=== PATIENT | male | born 2000 | race Caucasian/White ===

== ENCOUNTER 2023-02-07 18:31 | Inpatient (IN) | payer OTHER, SELFPAY ==
[2023-02-07 18:32] VITALS: BP 157/87; BP 172/100; PULSE 130; PULSE 78; RESP 16; RESP 18; TEMP 36.6; O2SAT 99
[2023-02-07 19:30] VITALS: BMI 37.2
--- NOTE | 2023-02-07 19:37 | HP.PCM.HOS_ITS ---
HPI - General General Date of Admission: 02/07/23 Date of Service: 02/07/23 Chief Complaint: EtOH abuse/withdrawal HPI Narrative The patient is a 22 y/o M w/ PMHx: Asthma, Obesity, EtOH abuse (1/2 bottle vodka daily), Vaping tobacco use, Anxiety and Depression never treated or evaluated he notes, Obesity who presents to the [facility] ED on 02/07/23 with history of acute alcohol withdrawal with last alcohol intake at approximately noon on day of presentation with onset of tremulousness, tactile disturbances, mild agitation as well as nausea prompting his father to bring him in for evaluation and detoxification. He has previously been through detox in the past. He is interested in obtaining a sober status. He reports that he has had ongoing significant alcohol abuse for the last 7 years. Work-up in the ED included T97.8, heart rate 130, BP 172/100, respiratory rate 18, 99% on room air, pending upon evaluation at the alcohol level, urine drug screen, CBC, CMP. [facility] Medical History Alcohol abuse Anxiety and depression Asthma Obesity Tobacco use Vaping nicotine dependence, tobacco product Home Medications NK 02/07/23 [History Last Taken Unknown] Allergy/AdvReac Type Severity Reaction Status Date / Time No Known Allergies Allergy Verified 02/07/23 18:34 Family History (Updated 02/07/23 @ 21:[address] Flakita Sullivan MD) Father Diabetes Mother No problems noted. Surgical History (Updated 02/07/23 @ 21:[address] Flakita Sullivan MD) No history of previous surgery Social History (Updated 02/07/23 @ 21:[address] Flakita Sullivan MD) household members: none Smoking Status: Current every day smoker tobacco type: e-cigarettes Electronic Cigarette Use: with nicotine alcohol intake: current alcohol intake frequency: 3 or more drinks per day details: ~ 1/2 gallon vodka daily, varying proof. substance use type: does not use ROS ROS Narrative Admission Review of Systems: CONSTITUTIONAL: No weight loss, fever, chills, + weakness or fatigue. HEENT: Eyes: No visual loss, blurred vision, double vision or yellow sclerae. Ears, Nose, Throat: No hearing loss, sneezing, congestion, runny nose or sore throat. SKIN: No rash or itching, lesions, wounds. CARDIOVASCULAR: No chest pain, chest pressure or chest discomfort, palpitations, edema, orthopnea, syncopal events. RESPIRATORY: No shortness of breath, cough or sputum, wheezing, hemoptysis. GASTROINTESTINAL: + anorexia, nausea. No vomiting or diarrhea, abdominal pain, melena, BRBPR. GENITOURINARY: No dysuria, frequency, urgency or retention. NEUROLOGICAL: + Mild tremors, mild tactile disturbances. No headache, dizziness, syncope, paralysis, ataxia, numbness or tingling in the extremities, focal weakness, change in bowel or bladder control, seizure. MUSCULOSKELETAL: No muscle, back pain, joint pain or stiffness. HEMATOLOGIC: No anemia, bleeding or bruising. LYMPHATICS: No enlarged nodes. No history of splenectomy. PSYCHIATRIC: + Admits to depression or anxiety, not formally diagnosed. ENDOCRINOLOGIC: No reports of sweating, cold or heat intolerance. No polyuria or polydipsia. ALLERGIES: + history of asthma. Vital Signs Vital Signs Vital Signs: 02/07/23 18:32 Temperature 97.8 F Temperature Source Temporal Pulse Rate 130 H Respiratory Rate 18 Blood Pressure 172/100 H Blood Pressure Mean 124 Pulse Ox 99 Oxygen Delivery Method Room Air Weight Weight: 290 lb 2.053 oz Body Mass Index (BMI) 37.2 Physical Exam Narrative Physical Examination: General: Awake, alert, oriented x 3 and cooperative, seated upright in the ED bed, fatigued, mildly tremulous and restless, very anxious. Skin: Normal color, normal turgor, no icterus, no cyanosis. HEENT: AT/NC, EOMI, PERRLA, moderately dry MM, no carotid bruits or JVD noted. Lungs: CTA bilaterally, moderate effort, mild decrease BL bases, no rales, ronchi or wheezing. Heart: Regular rate and rhythm; no gallop, rub audible. Abdomen: Soft, obese, mild generalized discomfort but no rebound or guarding and more so in the right upper quadrant/epigastric region, ND, hyperactive BS, + appreciated mild HM. Extremities: No cyanosis, clubbing, or edema. Neurological: Patient awake, alert, oriented as noted, cognitive function intact; pupils equally reactive to light and accommodation, cranial nerves II- XII grossly normal, moving all 4 extremities, no focal deficits, strength moderately globally decreased secondary to acute presentation, mildly tremulous, mild tactile disturbances noted Psychiatric: Affect appears fatigued, very anxious, no acute evidence of depressive feelings but does admit to likely underlying anxiety and depression. Assessment & Plan Assessment/Plan (1) Alcohol withdrawal: PLAN: Plan The patient is a 22 y/o M w/ PMHx: Asthma, Obesity, EtOH abuse (1/2 bottle vodka daily), Vaping tobacco use, Anxiety and Depression never treated or evaluated he notes, Obesity who presents to the [facility] ED on 02/07/23 with history of acute alcohol withdrawal. #1. Acute EtOH Withdrawal: Will admit to medical surgical floor, routine labs obtained in the ED upon presentation and pending upon requested evaluation of patient. Given interest in sobriety, will initiate and continue on protocol with taper course of Phenobarbital, as needed gabapentin, Catapres, Bentyl, Vistaril, IV fluids, IV antiemetics, Tylenol as needed for pain. Will consult Case management for assistance for transition to next level of rehabilitation care. Mag, phos pending. Maintain on CIWA protocol concurrently. #2. Elevated BP without HTN history: Notable BP elevation on presentation, likely related with acute presentation with alcohol withdrawal but will continue to monitor and if appropriate add oral regimen, in the interim PRN hydralazine. #3. Tobacco Abuse: Patient with chronic vaping tobacco use, encouraged cessation, inpatient consultation per RT, NR if desired. #4. Anxiety and depression: Patient does admit to this and suspect likely underlying especially given prolonged 7-year alcohol abuse, case management/substance counselor consulted and would benefit from further evaluation. #5. Obesity: Weight loss and lifestyle changes encouraged. #6. Asthma, chronic: Not on any chronic regimen, will have as needed albuterol, encourage vaping and tobacco product cessation. #7. DVT prophylaxis: Low risk. Charges/Coding Visit Charges Inpatient E&M: 33780 Init Hosp L2
--- NOTE | 2023-02-07 20:02 | EDS_ITS ---
HPI <TAVIA Morris - Last Filed: 02/07/23 20:06> History of Present Illness Chief Complaint: Substance Abuse Narrative Narrative: Patient is presenting today requesting detox from alcohol. He reports that he has been drinking for the past 7 years and drinks about a half bottle of vodka daily, the bottle is 750 mL. He has never medically detoxed in a facility before. He has never had a withdrawal seizure but does report that he gets withdrawal symptoms when he does not drink including feeling shaky and sweaty. He denies a PMH of any chronic health conditions. His last drink was 2 PM this afternoon. He denies any other substance use. PFSH <TAVIA Morris - Last Filed: 02/07/23 20:06> PFSH Medical History Alcohol abuse Anxiety and depression Asthma Obesity Tobacco use Vaping nicotine dependence, tobacco product Home Medications NK 02/07/23 [History Last Taken Unknown] Allergy/AdvReac Type Severity Reaction Status Date / Time No Known Allergies Allergy Verified 02/07/23 18:34 Family History (Updated 02/07/23 @ 21:[address] Flakita Sullivan MD) Father Diabetes Mother No problems noted. Surgical History (Updated 02/07/23 @ 21:[address] Flakita Sullivan MD) No history of previous surgery Social History (Updated 02/07/23 @ 21:[address] Flakita Sullivan MD) household members: none Smoking Status: Current every day smoker tobacco type: e-cigarettes Electronic Cigarette Use: with nicotine alcohol intake: current alcohol intake frequency: 3 or more drinks per day details: ~ 1/2 gallon vodka daily, varying proof. substance use type: does not use ROS <TAVIA Morris - Last Filed: 02/07/23 20:06> ROS ED Constitutional Constitutional ED: Denies chills or fever(s) Cardiovascular Cardiovascular: Denies chest pain or palpitations Respiratory/Chest Respiratory/Chest: Denies cough or dyspnea Gastrointestinal Gastrointestinal: Denies abdominal pain, nausea or vomiting Genitourinary Genitourinary ED: Denies dysuria, hematuria or urinary urgency Musculoskeletal Musculoskeletal: Denies arthralgias or myalgias Integumentary Denies rash Neurologic Neurologic: Denies weakness Psychiatric Psychiatric: Denies anxiety, depression, suicidal ideation or suicidal thoughts EXAM <TAVIA Morris - Last Filed: 02/07/23 20:06> Physical Exam Const Vital Signs: 02/07/23 18:32 02/07/23 18:32 Temperature 97.8 F Temperature Source Temporal Pulse Rate 130 H 78 Respiratory Rate 18 16 Blood Pressure 172/100 H 157/87 H Blood Pressure Mean 124 110 Pulse Ox 99 99 Oxygen Delivery Method Room Air Room Air Positive well nourished, well developed and no apparent distress General Appearance ED: well developed HEENT Reports normocephalic and head/scalp atraumatic Mouth ED: Yes moist mucous membranes normal Eyes PERRL and EOMs intact bilaterally Neck full ROM and supple Chest Wall inspection of chest normal Resp normal respiratory effort and clear to auscultation bilaterally Cardio regular rate and regular rhythm GI soft to palpation, non-tender, non-distended and no masses Back/Spine normal ROM and normal to inspection Extremity normal to inspection and full ROM Neuro oriented x3, CN's II-XII intact bilaterally, moves all extremities, no focal motor deficits and no sensory deficits noted Sensorium / Orientation: awake and alert Psych mental status grossly normal and thought process normal Skin no rashes or lesions noted and no wounds <Dr. Mayelin Romero, - Last Filed: 02/07/23 22:19> Physical Exam Const Vital Signs: 02/07/23 18:32 02/07/23 18:32 Temperature 97.8 F Temperature Source Temporal Pulse Rate 130 H 78 Respiratory Rate 18 16 Blood Pressure 172/100 H 157/87 H Blood Pressure Mean 124 110 Pulse Ox 99 99 Oxygen Delivery Method Room Air Room Air MDM <TAVIA Morris - Last Filed: 02/07/23 20:06> [facility] Narrative Medical decision making narrative: Patient requesting to detox from alcohol, he has drank heavily for the past 7 years and has never tried to detox in a facility before. Initially he was tachycardic but repeat vitals show 78 bpm. He does appear shaky. He will be admitted in stable condition for detox and is comfortable with plan. Detox labs have been obtained. <Dr. Mayelin Romero DO - Last Filed: 02/07/23 22:19> [facility] Narrative Medical decision making narrative: Patient requesting to detox from alcohol, he has drank heavily for the past 7 years and has never tried to detox in a facility before. Initially he was t achycardic but repeat vitals show 78 bpm. He does appear shaky. He will be admitted in stable condition for detox and is comfortable with plan. Detox labs have been obtained. I have personally performed a face to face assessment of the patient and have reviewed the FRITZ Note. I performed a substantive portion of the visit including all aspects of the following. My escamilla findings include: History is patient is a 22-year-old male with history of ongoing alcohol use, states he drinks half of 120 proof vodka daily. He is present with his father for request of alcohol detox. Has no other complaints at this time. He is mildly tremulous but also states this is his baseline. At this time I do not think he is actively withdrawing. Will be admitted for inpatient detox he is agreeable with entered into our ramp program. Other additions or changes: [None] Discharge Plan Dx/Rx/DC Orders Clinical Impression: Desire for detoxification, Alcohol use Disposition Disposition: [facility]
[2023-02-07 20:16] VITALS: BP 155/61; PULSE 87; RESP 16; TEMP 36.6; O2SAT 99
[2023-02-07 20:32] VITALS: BP 158/78; PULSE 76; RESP 14; O2SAT 99
[2023-02-07 21:13] VITALS: BP 146/81; PULSE 88; RESP 18; TEMP 36.8; O2SAT 99
[2023-02-07 21:30] LABS: Magnesium 2.8 mg/dL (1.6-2.6); Phosphorus 2.8 mg/dL (2.5-4.9)
--- NOTE | 2023-02-07 21:52 | CM.ED ---
Social Work SW introduced self and role to patient. Pt's father present in the room and supportive. Pt is requesting detox from alcohol. Pt reports being nervous and has questions regarding the process. Pt reports he has never detoxed before. SW provided emotional support and answered some questions. Treatment navigator notified of patient being admitted for detox. Anjelica Barahona CARE ANALYST, SUPERVISOR [employer]
[2023-02-07 21:55] LABS: Absolute Lymphocyte Count 1.97 X10^3/uL (0.83-4.51); Absolute Neutrophil Count 3.2 X10^3/uL (2.0-7.7); Basophil# 0.06 X10^3/uL; Eosinophil# 0.01 X10^3/uL; Eosinophils% 0.2 % (0-5); Hematocrit 43.3 % (40-54); Hemoglobin 14.6 g/dL (13.0-16.5); Lymphocyte # 1.97 X10^3/ul (0.83-4.51); Lymphocyte % 34.2 % (19-41); Mean Corp Hgb Conc 33.7 g/dL (32-36); Mean Corpuscular Hgb 30.5 pg (27.0-32.0); Mean Corpuscular Volume 90.6 fL (80-94); Mean Platelet Vol. 9.1 fl (6.2-12.0); Monocyte% 8.7 % (0-10); NRBC Flagged by Analyzer 0 % (0-5); Neutrophil # 3.21 X10^3/uL (2.7-7.7); Neutrophil % 55.7 % (47-70); Platelet Count 320 K/mm3 (150-450); RBC Distribution Width CV 12.5 % (11.6-14.6); RBC Distribution Width SD 41.1 fl (35.1-43.9); Red Blood Count 4.78 M/mm3 (4.6-6.2); White Blood Count 5.8 K/mm3 (4.4-11.0)
[2023-02-07 22:26] LABS: ALB/GLOB Ratio 1.1 RATIO (0.9-2.4); AST(SGOT) 56 U/L (15-37); Alanine Aminotransfer ALT/SGPT 62 U/L (16-61); Alkaline Phosphatase 73 U/L (45-117); Anion Gap 15 (5-15); BUN 8 mg/dL (7-18); BUN/Creat Ratio 11.1 RATIO (10-20); Calcium,Total 8.8 mg/dL (8.5-10.1); Chloride 101 mmol/L (98-107); Creatinine, Serum 0.72 mg/dL (0.70-1.30); EST Glomerular Filtration Rate 143 mL/min (>60); Est Glom Filt Rate - Afr Amer 173 mL/min (>60); Estimated Creatinine Clearance 185.52 ml/min; Globulin 3.7 g/dL (2.2-4.2); Glucose 83 mg/dL (74-106); Protein, Total 7.7 g/dL (6.4-8.2); Sodium Level 141 mmol/L (136-145)
[2023-02-07 22:34] VITALS: BMI 35.9
[2023-02-07 22:50] VITALS: BP 158/113; PULSE 102; RESP 18; TEMP 36.6; O2SAT 97
[2023-02-07] MEDS: Ondansetron 8 MG Tablet PO (23:04)
[2023-02-07] MEDS: Phenobarbital 32.4 MG Tablet 64.8 MG PO (23:04)
[2023-02-07] MEDS: traZODone 100 MG Tablet PO (23:05)
[2023-02-07] MEDS: hydrOXYzine PAM 25 MG Capsule 50 MG PO (23:05)
[2023-02-08] MEDS: Phenobarbital 32.4 MG Tablet 64.8 MG PO ×6 (01:22→21:28)
[2023-02-08 05:24] VITALS: BP 141/87; PULSE 107; RESP 18; TEMP 36.4; O2SAT 96
[2023-02-08 07:59] VITALS: O2SAT 95
--- NOTE | 2023-02-08 08:36 | PCM.PN.HOSP ---
Reason for Visit Reason for Visit: Diagnoses Alcohol use, unspecified with withdrawal, unspecified (02/07/23) Subjective Subjective Follow-up for acute alcohol withdrawal syndrome. Objective Data Objective Data Vital Signs: Vital Signs Temp Pulse Resp BP Pulse Ox O2 Del Method 97.6 F L 107 H 18 141/87 H 95 Room Air 02/08/23 05:24 02/08/23 05:24 02/08/23 05:24 02/08/23 05:24 02/08/23 07:59 02/08/23 07:59 Oxygen Delivery Method Room Air Weight: 287 lb 8 oz Body Mass Index (BMI) 35.9 Lab / Micro Data 02/07/23 21:05 02/07/23 21:05 Labs: Laboratory Results - last 24 hr 02/07/23 21:05: WBC 5.8, RBC 4.78, Hgb 14.6, Hct 43.3, MCV 90.6, MCH 30.5, MCHC 33.7, RDW Std Deviation 41.1, RDW Coeff of Parker 12.5, Plt Count 320, MPV 9.1, Immature Gran % (Auto) 0.200, Neut % (Auto) 55.7, Lymph % (Auto) 34.2, Gaines % (Auto) 8.7, Eos % (Auto) 0.2, Baso % (Auto) 1.0, Absolute Neuts (auto) 3.2, Absolute Lymphs (auto) 1.97, Nucleated RBC % 0, Sodium 141, Potassium 3.0 L, Chloride 101, Carbon Dioxide 25.0, Anion Gap 15, BUN 8, Creatinine 0.72, Estim Creat Clear Calc 185.52, Est GFR (MDRD) Af Amer 173, Est GFR (MDRD) Non-Af 143, BUN/Creatinine Ratio 11.1, Glucose 83, Calcium 8.8, Phosphorus 2.8, Magnesium 2.8 H, Total Bilirubin 0.30, AST 56 H, ALT 62 H, Alkaline Phosphatase 73, Total Protein 7.7, Albumin 4.0, Globulin 3.7, Albumin/Globulin Ratio 1.1, Ethyl Alcohol 374.0 H* Physical Exam Narrative Seen and examined. Patient drinks half bottle of vodka daily preferably about 400 mL. Patient denies history of chronic liver disease. Denies chronic stigmata of cirrhosis/alcoholic hepatitis including ascites, GI bleed or features of portal hypertension. Physical exam General: Alert, Oriented x3, Cooperative HEENT: Atraumatic, PERRLA, EOMI, Normocephalic Oral: Oral mucosa dry. No Gingival or Mucosal Lesions/ Ulcerations Neck: Supple, No JVD, Negative Carotid Bruits Lungs: Air entry diminished in bilateral lung bases. No crepitation/rhonchi Cardiovascular: Regular rate, Regular Rhythm, Normal S1, Normal S2, No murmurs Abdomen: Bowel Sounds Present, Soft, Non Tender, Non-Distended. No ascites. No hepatosplenomegaly. : No renal angle tenderness. No suprapubic tenderness. Extremities: No edema, Capillary Refill Less than 3 Seconds Skin: No rashes, No breakdown Musculoskeletal: No Tenderness to Palpation of Joints or Extremities Neurological: Cranial nerves II-XII grossly intact, DTR 2+/4. No acute focal neurological defic Psych/Mental Status: Flat affect mild restlessness. No aggressiveness/suicidal ideation. No hallucination. Assessment & Plan Assessment/Plan (1) Alcohol withdrawal: QUALIFIERS: Complication of substance-induced condition: with delirium Qualified Code(s): F10.931 - Alcohol use, unspecified with withdrawal delirium PLAN: Plan The patient is a 22 y/o M w/ PMHx: Asthma, Obesity, EtOH abuse (1/2 bottle vodka daily), Vaping tobacco use, Anxiety and Depression never treated or evaluated he notes, Obesity who presents to the [facility] ED on 02/07/23 with history of acute alcohol withdrawal. #1. Acute alcohol withdrawal syndrome with history of chronic alcohol use dependence: Patient is being admitted to MedSurg floor. On IV fluid was given. Patient on phenobarbital based order set along with other adjunctive medications as needed for alcohol withdrawal symptom control. CIWA monitor. auto body shop manager consulted. On CIWA protocol. Patient has hypokalemia: Potassium replaced ordered with Neutra-Phos. #2. Elevated BP without HTN history: Blood pressure was high during admission probably due to acute alcohol withdrawal. Patient is still tachycardic. Clonidine ordered. Discontinue hydralazine. #3. Tobacco Abuse: Patient with chronic vaping tobacco use, encouraged cessation, on nicotine patch. #4. Anxiety and depression: auto body shop manager consult. Not on antidepression.. #5. Obesity: Weight loss and lifestyle changes encouraged. #6. Asthma, chronic: Not on any chronic regimen, will have as needed albuterol, encourage vaping and tobacco product cessation. #7. DVT prophylaxis: Low risk. Laboratory Results 02/07/23 10:30: Urine Opiates Screen NEGATIVE, Urine Methadone Screen NEGATIVE, Ur Barbiturates Screen POSITIVE H, Ur Phencyclidine Scrn NEGATIVE, Ur Amphetamines Screen NEGATIVE, MDMA (Ecstasy) Screen POSITIVE H, U Benzodiazepines Scrn NEGATIVE, Urine Cocaine Screen NEGATIVE, U Cannabinoids Screen POSITIVE H, Ur Drug Screen Comment 02/07/23 21:05: WBC 5.8, RBC 4.78, Hgb 14.6, Hct 43.3, MCV 90.6, MCH 30.5, MCHC 33.7, RDW Std Deviation 41.1, RDW Coeff of Parker 12.5, Plt Count 320, MPV 9.1, Immature Gran % (Auto) 0.200, Neut % (Auto) 55.7, Lymph % (Auto) 34.2, Gaines % (Auto) 8.7, Eos % (Auto) 0.2, Baso % (Auto) 1.0, Absolute Neuts (auto) 3.2, Absolute Lymphs (auto) 1.97, Nucleated RBC % 0, Sodium 141, Potassium 3.0 L, Chloride 101, Carbon Dioxide 25.0, Anion Gap 15, BUN 8, Creatinine 0.72, Estim Creat Clear Calc 185.52, Est GFR (MDRD) Af Amer 173, Est GFR (MDRD) Non-Af 143, BUN/Creatinine Ratio 11.1, Glucose 83, Calcium 8.8, Phosphorus 2.8, Magnesium 2.8 H, Total Bilirubin 0.30, AST 56 H, ALT 62 H, Alkaline Phosphatase 73, Total Protein 7.7, Albumin 4.0, Globulin 3.7, Albumin/Globulin Ratio 1.1, Ethyl Alcohol 374.0 H* Charges/Coding Visit Charges Inpatient E&M: 77837 Subs Hosp L2
[2023-02-08] MEDS: Multivitamins,Ther W-Minerals Tablet 1 TABLET PO (08:51)
[2023-02-08] MEDS: Folic Acid 1 MG Tablet PO (08:52)
[2023-02-08] MEDS: Thiamine Hydrochloride 100 MG Tablet PO (08:52)
[2023-02-08 09:21] VITALS: BP 158/98; PULSE 109; PULSE 110; RESP 18; TEMP 36.6; O2SAT 98
[2023-02-08 11:22] LABS: Amphetamine Urine VISTA NEGATIVE (<1000 ng/mL); Barbiturate Urine VISTA POSITIVE (< 200 ng/mL); Benzodiazepine Urine VISTA NEGATIVE (< 200 ng/mL); Cocaine Urine VISTA NEGATIVE (< 300 ng/mL); Ecstacy Urine VISTA POSITIVE (< 500 ng/mL); Methadone Urine VISTA NEGATIVE (< 300 ng/mL); PCP Urine VISTA NEGATIVE (< 25 ng/mL); THC Urine VISTA POSITIVE (< 50 ng/mL); Vista UDS pH Range 6
[2023-02-08] MEDS: Na Biphos/Potassium Phosphate PACKET 1 PACKET PO ×3 (13:02→21:30)
[2023-02-08 14:00] VITALS: BP 142/81; PULSE 124; RESP 18; TEMP 36.7; O2SAT 97
[2023-02-08 14:12] VITALS: PULSE 114
[2023-02-08] MEDS: hydrOXYzine PAM 25 MG Capsule 50 MG PO (17:34)
[2023-02-08] MEDS: cloNIDine HCl 0.2 MG Tablet PO ×2 (17:48→21:30)
[2023-02-08] MEDS: traZODone 100 MG Tablet PO (21:29)
[2023-02-08 21:33] VITALS: BP 169/98; PULSE 100; RESP 14; TEMP 36.7; O2SAT 99
[2023-02-08] MEDS: 0.9% Saline Lock 10 ML Syringe IV (21:38)
[2023-02-09 01:31] VITALS: BP 119/77; PULSE 88; RESP 12; TEMP 36.6; O2SAT 97
[2023-02-09 01:32] VITALS: BP 119/77; PULSE 88; RESP 12; TEMP 36.6; O2SAT 98
[2023-02-09] MEDS: Phenobarbital 32.4 MG Tablet 64.8 MG PO ×5 (01:34→17:04)
[2023-02-09] MEDS: Na Biphos/Potassium Phosphate PACKET 1 PACKET PO ×2 (05:31→12:41)
[2023-02-09 07:07] LABS: Anion Gap 8 (5-15); BUN 7 mg/dL (7-18); BUN/Creat Ratio 9.9 RATIO (10-20); Calcium,Total 8.8 mg/dL (8.5-10.1); Chloride 100 mmol/L (98-107); EST Glomerular Filtration Rate 146 mL/min (>60); Est Glom Filt Rate - Afr Amer 177 mL/min (>60); Estimated Creatinine Clearance 196.16 ml/min; Glucose 86 mg/dL (74-106); Potassium 2.7 mmol/L (3.5-5.1); Sodium Level 137 mmol/L (136-145)
--- NOTE | 2023-02-09 07:12 | PN.HOSP_ITS ---
Reason for Visit Reason for Visit: Diagnoses Alcohol use, unspecified with withdrawal delirium (02/07/23) Alcohol use, unspecified with withdrawal, unspecified (02/07/23) Subjective Subjective Follow-up for acute alcohol withdrawal syndrome and hypokalemia, electrolyte abnormality. Objective Data Objective Data Vital Signs: Vital Signs Temp Pulse Resp BP Pulse Ox O2 Del Method 97.8 F 88 12 119/77 98 Room Air 02/09/23 01:32 02/09/23 01:32 02/09/23 01:32 02/09/23 01:32 02/09/23 01:32 02/09/23 01:32 Oxygen Delivery Method Room Air Weight: 287 lb 8 oz Body Mass Index (BMI) 35.9 Lab / Micro Data 02/07/23 21:05 02/09/23 05:30 Labs: Laboratory Results - last 24 hr 02/07/23 10:30: Urine Opiates Screen NEGATIVE, Urine Methadone Screen NEGATIVE, Ur Barbiturates Screen POSITIVE H, Ur Phencyclidine Scrn NEGATIVE, Ur Amphetami ryan Screen NEGATIVE, MDMA (Ecstasy) Screen POSITIVE H, U Benzodiazepines Scrn NEGATIVE, Urine Cocaine Screen NEGATIVE, U Cannabinoids Screen POSITIVE H, Ur Drug Screen Comment 02/09/23 05:30: Sodium 137, Potassium 2.7 L*, Chloride 100, Carbon Dioxide 29.0, Anion Gap 8, BUN 7, Creatinine 0.70, Estim Creat Clear Calc 196.16, Est GFR (MDRD) Af Amer 177, Est GFR (MDRD) Non-Af 146, BUN/Creatinine Ratio 9.9 L, Glucose 86, Calcium 8.8 Physical Exam Narrative Seen and examined. No hallucination, delusion. Patient does not feel panic. No seizure. Tremors have mostly resolved. Patient drinks half bottle of vodka daily preferably about 400 mL. Patient denies history of chronic liver disease. Denies chronic stigmata of cirrhosis/alcoholic hepatitis including ascites, GI bleed or features of portal hypertension. Physical exam General: Alert, Oriented x3, Cooperative HEENT: Atraumatic, PERRLA, EOMI, Normocephalic Oral: Oral mucosa dry. No Gingival or Mucosal Lesions/ Ulcerations Neck: Supple, No JVD, Negative Carotid Bruits Lungs: Air entry diminished in bilateral lung bases. No crepitation/rhonchi Cardiovascular: Regular rate, Regular Rhythm, Normal S1, Normal S2, No murmurs Abdomen: Bowel Sounds Present, Soft, Non Tender, Non-Distended. No ascites. No hepatosplenomegaly. : No renal angle tenderness. No suprapubic tenderness. Extremities: No edema, Capillary Refill Less than 3 Seconds Skin: No rashes, No breakdown Musculoskeletal: No Tenderness to Palpation of Joints or Extremities Neurological: Cranial nerves II-XII grossly intact, DTR 2+/4. No acute focal neurological defic Psych/Mental Status: Normal affect. No aggressiveness/suicidal ideation. No hallucination. Assessment & Plan Assessment/Plan (1) Alcohol withdrawal: QUALIFIERS: Complication of substance-induced condition: with delirium Qualified Code(s): F10.931 - Alcohol use, unspecified with withdrawal delirium PLAN: Plan The patient is a 22 y/o M w/ PMHx: Asthma, Obesity, EtOH abuse (1/2 bottle vodka daily), Vaping tobacco use, Anxiety and Depression never treated or evaluated he notes, Obesity who presents to the [facility] ED on 02/07/23 with history of acute alcohol withdrawal. #1. Acute alcohol withdrawal syndrome with history of chronic alcohol use dependence: Patient is being admitted to MedSurg floor. On IV fluid was given. Patient on phenobarbital based order set along with other adjunctive medications as needed for alcohol withdrawal symptom control. CIWA monitor. sales effectiveness manager consulted. On CIWA protocol. Patient has hypokalemia: Potassium replaced ordered with Neutra-Phos. 02/09: Electrolyte abnormality: Patient has hypokalemia: Oral K. Dur ordered. Serum magnesium and phosphorus level normal. Labs for electrolytes ordered tomorrow a.m. #2. Elevated BP without HTN history: Blood pressure was high during admission probably due to acute alcohol withdrawal. Patient is still tachycardic. Clonidine ordered. Discontinue hydralazine. #3. Tobacco Abuse: Patient with chronic vaping tobacco use, encouraged cessation, on nicotine patch. #4. Anxiety and depression: sales effectiveness manager consult. Not on antidepression.. #5. Obesity: Weight loss and lifestyle changes encouraged. #6. Asthma, chronic: Not on any chronic regimen, will have as needed albuterol, encourage vaping and tobacco product cessation. #7. DVT prophylaxis: Low risk. Charges/Coding Visit Charges Inpatient E&M: 18007 Subs Hosp L2
[2023-02-09 08:07] VITALS: O2SAT 96
[2023-02-09] MEDS: Potassium Chloride Oral Tablet 20 MEQ 40 MEQ PO ×2 (08:59→12:40)
[2023-02-09] MEDS: Multivitamins,Ther W-Minerals Tablet 1 TABLET PO (09:00)
[2023-02-09] MEDS: cloNIDine HCl 0.2 MG Tablet PO (09:00)
[2023-02-09] MEDS: Folic Acid 1 MG Tablet PO (09:01)
[2023-02-09] MEDS: Thiamine Hydrochloride 100 MG Tablet PO (09:01)
[2023-02-09 09:34] VITALS: BP 141/89; PULSE 96; RESP 18; TEMP 36.7; O2SAT 97
--- NOTE | 2023-02-09 12:54 | NURSING ---
180 counselor updated that parents will not pick pt up or allow them to return to their home until after he has completed an inpt treatment plan, longer than 30 days-admits that his girlfriend brings alcohol to him and that he buys it himself-but they feel at this point they are enabling pt-mother is involved with alcohol support (sam) weekly-mother is tearful and given verbal support to continue with her support group
[2023-02-09 14:00] VITALS: BP 149/91; PULSE 88; RESP 16; TEMP 36.7; O2SAT 16; O2SAT 96
[2023-02-09 17:10] VITALS: BP 150/102; PULSE 93; RESP 20; TEMP 36.6; O2SAT 99
[2023-02-09] MEDS: hydrOXYzine PAM 25 MG Capsule 50 MG PO (17:12)
[2023-02-09] MEDS: LORazepam 1 MG Tablet 2 MG PO (17:13)
[2023-02-09] MEDS: Gabapentin 300 MG Capsule PO (17:13)
--- NOTE | 2023-02-09 17:28 | NURSING ---
pt is restless, wanting to leave early I explained that would be against medical advice-pt agreed to take prn's (previously offerred and declined) to help with his anxiety/restlessness
--- NOTE | 2023-02-09 18:17 | NURSING ---
Addendum entered by Mylene Clay 02/09/23 18:22: it was confirmed with patient that he had resources regarding addition rehab/ phone numbers he could call for assistance. Original Note: into room with primary RN after primary RN received phone call from pt's mother stating pt had his phone. pt admitted that he broke into his tote and took his phone and was texting his girlfriend and his mother. primary RN discussed that pt was given other options besides sitting in chair as pt states he couldn't just sit in his room and didn't want to take meds. pt states leaving AMA. witnessed pt sign AMA form. updated.
--- NOTE | 2023-02-09 18:41 | NURSING ---
pt signed AMA form and is insisting on leaving, he had broken into his buns and got out his phone-pt insisting that since he broke his contract technically, he will be dc'd and he said he wants to leave-pt given belongings, dressed and escorted to front door
--- NOTE | 2023-02-09 18:43 | PCM.DC.SUM ---
Providers Date of Admission: 02/07/23 Date of Discharge: 02/09/23 Primary Care Physician: Dr. Gary Muniz DO Reason For Visit: ETOH ABUSE/WITHDRAWL Diagnosis Discharge Diagnosis (1) Alcohol withdrawal: Status: Acute Code(s): F10.939 - Alcohol use, unspecified with withdrawal, unspecified Qualifiers: Complication of substance-induced condition: with delirium Qualified Code(s): F10.931 - Alcohol use, unspecified with withdrawal delirium Plan The patient is a 22 y/o M w/ PMHx: Asthma, Obesity, EtOH abuse (1/2 bottle vodka daily), Vaping tobacco use, Anxiety and Depression never treated or evaluated he notes, Obesity who presents to the [facility] ED on 02/07/23 with history of acute alcohol withdrawal. #1. Acute alcohol withdrawal syndrome with history of chronic alcohol use dependence: Patient is being admitted to MedSurg floor. On IV fluid was given. Patient on phenobarbital based order set along with other adjunctive medications as needed for alcohol withdrawal symptom control. CIWA monitor. resource manager consulted. On CIWA protocol. Patient has hypokalemia: Potassium replaced ordered with Neutra-Phos. 02/09: Electrolyte abnormality: Patient has hypokalemia: Oral K. Dur ordered. Serum magnesium and phosphorus level normal. Labs for electrolytes ordered tomorrow a.m. #2. Elevated BP without HTN history: Blood pressure was high during admission probably due to acute alcohol withdrawal. Patient is still tachycardic. Clonidine ordered. Discontinue hydralazine. #3. Tobacco Abuse: Patient with chronic vaping tobacco use, encouraged cessation, on nicotine patch. #4. Anxiety and depression: resource manager consult. Not on antidepression.. #5. Obesity: Weight loss and lifestyle changes encouraged. #6. Asthma, chronic: Not on any chronic regimen, will have as needed albuterol, encourage vaping and tobacco product cessation. #7. DVT prophylaxis: Low risk. Patient signed AMA although he was supposed to be discharged tomorrow on 4th day as RAMP. He is alert oriented x3 and well aware of the risks and complications of signing AMA. Medications at Discharge Home Medications folic acid 1 mg tablet 1 mg PO DAILY@0800 30 days #30 tabs 02/09/23 nicotine 21 mg/24 hr daily transdermal patch 21 mg transdermal DAILY 30 days #30 ea 02/09/23 potassium, sodium phosphates 280 mg-160 mg-250 mg oral powder packet 1 packet PO TID 3 days #9 ea 02/09/23 thiamine HCl (vitamin B1) 100 mg tablet (Vitamin B-1) 100 mg PO DAILYCM 30 days #30 tabs 02/09/23 Weight / BMI Weight Weight: 287 lb 8 oz Body Mass Index (BMI) 35.9 ABG / Lab / Microbiology Data 02/07/23 21:05 02/09/23 05:30 Laboratory: Laboratory Results - last 24 hr 02/09/23 05:30: Sodium 137, Potassium 2.7 L*, Chloride 100, Carbon Dioxide 29.0, Anion Gap 8, BUN 7, Creatinine 0.70, Estim Creat Clear Calc 196.16, Est GFR (MDRD) Af Amer 177, Est GFR (MDRD) Non-Af 146, BUN/Creatinine Ratio 9.9 L, Glucose 86, Calcium 8.8 Meaningful Use Info Meaningful Use Diagnoses (Choose all that apply): None applicable Discharge Plan Admission Admit Date/Time: 02/07/23 19:37 Primary Reason for Your Visit: Acute alcohol withdrawal syndrome. Attending Provider: Gabino Zhong Primary Care Provider: Gary Muniz Consulting Providers: Flakita Sullivan; Laith Granados Instructions Additional Instructions / Restrictions: Signed AMA. Discharge Orders/Prescriptions Prescriptions: New thiamine HCl (vitamin B1) [Vitamin B-1] 100 mg Tablet 100 mg PO DAILYCM 30 Days Qty: 30 2RF nicotine 21 mg/24 hr Patch 24 Hour 21 mg transdermal DAILY 30 Days Qty: 30 0RF potassium, sodium phosphates 280-160-250 mg Powder In Packet 1 packet PO TID 3 Days Qty: 9 0RF folic acid 1 mg Tablet 1 mg PO DAILY@0800 30 Days Qty: 30 2RF Referrals / Follow Up: Gary Muniz DO [Primary Care Provider] - Care Physician,No Primary [Non-Staff] - Disposition Disposition (needs filled in before D/C Order can be placed): Against Medical Advice
== END 2023-02-09 18:28 | disposition left against medical advice (07) | DRG 894 ==
LOC: ED 20:06 → MS3 20:10
PROVIDERS: Internal Medicine; Admitting Provider Family Medicine; Emergency Provider Emergency Medicine; PCP Family Medicine; Visit Provider Internal Medicine
DX: F10.131 Alcohol abuse with withdrawal delirium (principal); E66.9 Obesity, unspecified; E87.6 Hypokalemia; F32.A Depression, unspecified; F17.210 Nicotine dependence, cigarettes, uncomplicated; J45.909 Unspecified asthma, uncomplicated; R03.0 Elevated blood-pressure reading, without diagnosis of hypertension; Z68.35 Body mass index [BMI] 35.0-35.9, adult; Y90.8 Blood alcohol level of 240 mg/100 ml or more
CPT/HCPCS: 36415; 80048; 80053; 80307; 82077; 83735; 84100; 85025; 97802; 99284; 99406; A4216